=== PATIENT | male | born 1950 | race Caucasian/White ===

== ENCOUNTER → 2016-08-30 | Outpatient (CLI) | payer OTHER ==
[~2016-08-30] MED LIST: ALBUAER2 INH; ASPEC81 PO; BCTCR/30 EXT; BUPR-79 PO; EXL15 PO; FURO20TA PO; LOSA25TA18 PO; METO25TA3 PO; SIMV20TA2 PO; SPRIN/30 INH; [UNRECOGNIZED DRUG - OTHER] PO
--- NOTE | 2016-08-30 12:03 | DIAGNOSTIC IMAGING REPORT ---
VIDEO SWALLOW HISTORY: Dysphagia DYSPHAGIA TECHNIQUE: Video fluoroscopic evaluation of swallowing was performed in the AP and lateral projections by the speech pathology staff. The patient is fed nectar-thick and thin liquid barium, a barium coated wafer, and barium pudding. FLUOROSCOPY TIME: 2.5 minutes. COMPARISON STUDY: None. FINDINGS: There is normal hyoid excursion and epiglottic deflection. No significant penetration or aspiration identified. Swallowing function is within normal limits. Findings a limited made of a Zenker's diverticulum of the low cervical esophagus. IMPRESSION: 1. No aspiration identified. 2. Zenker's diverticulum 3. Please see the speech pathologist report for detailed findings and recommendations. Electronically signed by: Antonio Lou M.D. 08/30/2016 12:02 PM Dictated Date/Time: 08/30/2016 12:00 PM
--- NOTE | 2016-08-30 14:48 | SWALLOWING EVALUATION ---
HISTORY: This 66 year old man was referred for a video swallow study at [facility] in order to rule out aspiration and identify the safest consistencies for optimal oral intake. The patient reports he is coughing with food and pills. He reports meats, in particular, give him a problem as do pills. He feels he has to "bring them back up" and expectorate them. The patient also reports he does not go out to eat anymore because of this happening and feels embarrassed. PMH is significant for: CAD s/p CABG, NNAMDI, EF=30%, ICD, and obesity. The patient also reported he had "a little bit of dementia". Current diet is regular. PROCEDURE: The patient was seen in the Radiology Department of [facility] for the VFSS. Cursory examination of the oral cavity revealed natural dentition. Movement of the articulators was wnl. The patient was seated on a stool and was viewed in both the Anterior-Posterior (A-P) and Lateral planes. Volitional phonation exercises completed in the A-P plane revealed bilateral vocal fold movement and vocal intensity within functional limits. In the lateral plane, the patient was given the following boluses: 1 tsp. thin liquid barium x 2, single swallow thin liquid barium self-presented from a cup, sequential swallows of thin liquid barium self-presented from a straw, 1 tsp. nectar-thick liquid barium, single swallow nectar-thick liquid barium self-presented from a cup, and 1 tsp. barium pudding. The patient was then repositioned into the A-P plane and given the following boluses: 1 tsp. barium pudding, 1 club cracker with barium paste, and 2 cup sips of thin liquid barium. RESULTS: Oral Stage: Lip closure was adequate. The patient was able to maintain a cohesive liquid bolus upon command without lateral or posterior escape. Mastication was mildly slow. Lingual motion for bolus transport was brisk. There was trace retention lining the tongue and palate after the swallow. The initiation of the pharyngeal swallow triggered when the bolus head reached valleculae. Pharyngeal Stage: Soft palate elevation was complete. Laryngeal elevation revealed complete superior movement of the thyroid cartilage with complete approximation of the arytenoids to the epiglottic base. Anterior hyoid excursion and epiglottic deflection were complete. The pharyngeal stripping wave was present and complete. There was complete distention and duration of the opening to the pharyngoesophageal segment (PES). Tongue base retraction was reduced, with a narrow column of contrast located between the tongue base and pharyngeal wall. There was trace retention located in the valleculae. There was no evidence of laryngeal penetration or aspiration for this study. Esophageal stage: The patient was found to have a Zenker's Diverticulum in the A-P plane. There was also distal esophageal retention with retrograde flow below the PES. He did have noted retrograde flow through the PES into the pyriforms from the esophagus in the lateral view. SUMMARY/RECOMMENDATIONS: This patient presents with normal mary jane-pharyngeal dysphagia. He has s/s of esophageal dysfunction. The following is recommended: 1. Regular diet, slippery, and thin liquids. 2. Aspiration and GERD precautions. Fully upright while eating and 30 minutes after meals. HOB elevated to 30 degrees at all times to include while asleep. 3. Safe swallow strategies: Avoid foods that are dry, thick, pasty, or doughy. Small frequent meals. Rest breaks while eating. 4. Consider a GI consult due to esophageal dysfunction and Zenker's Diverticulum. A summary of the results and recommendations was discussed with the patient and he immediately following the study with verbal understanding. Thank you for referral of this patient. Please contact me at if any additional information is needed.
== END | disposition home or self-care (01) ==
LOC: C.RAD 10:50
PROVIDERS: ATTEND Family Medicine
DX: R13.10 Dysphagia, unspecified (principal); K22.5 Diverticulum of esophagus, acquired